=== PATIENT | male | born 1950 | race Caucasian/White ===

== ENCOUNTER → 2020-12-14 | Outpatient (CLI) | payer MEDICARE, BC | LOC: WOUNDCARE 07:47 | PROVIDERS: ATTEND Nurse Practitioner | DX: L59.8 Other specified disorders of the skin and subcutaneous tissue related to radiation (principal); N30.41 Irradiation cystitis with hematuria; R31.0 Gross hematuria; E78.1 Pure hyperglyceridemia; I25.2 Old myocardial infarction; Z85.46 Personal history of malignant neoplasm of prostate; Z87.891 Personal history of nicotine dependence; Z85.828 Personal history of other malignant neoplasm of skin; Z79.899 Other long term (current) drug therapy ==

== ENCOUNTER → 2020-12-22 | Outpatient (CLI) | payer MEDICARE, BC | LOC: WOUNDCARE 02:28 | PROVIDERS: ATTEND Nurse Practitioner | DX: L59.8 Other specified disorders of the skin and subcutaneous tissue related to radiation (principal); M87.88 Other osteonecrosis, other site; N30.41 Irradiation cystitis with hematuria; R31.0 Gross hematuria; I10 Essential (primary) hypertension; E78.1 Pure hyperglyceridemia; I25.2 Old myocardial infarction; Z85.46 Personal history of malignant neoplasm of prostate; Z87.891 Personal history of nicotine dependence; Z85.828 Personal history of other malignant neoplasm of skin; Z79.899 Other long term (current) drug therapy; Y84.2 Radiological procedure and radiotherapy as the cause of abnormal reaction of the patient, or of later complication, without mention of misadventure at the time of the procedure ==

== ENCOUNTER → 2020-12-23 | Outpatient (CLI) | payer MEDICARE, BC | LOC: WOUNDCARE 00:45 | PROVIDERS: ATTEND Nurse Practitioner | DX: L59.8 Other specified disorders of the skin and subcutaneous tissue related to radiation (principal); M87.88 Other osteonecrosis, other site; N30.41 Irradiation cystitis with hematuria; R31.0 Gross hematuria; E78.1 Pure hyperglyceridemia; I25.2 Old myocardial infarction; Z85.46 Personal history of malignant neoplasm of prostate; Z87.891 Personal history of nicotine dependence; Z85.828 Personal history of other malignant neoplasm of skin; Y84.2 Radiological procedure and radiotherapy as the cause of abnormal reaction of the patient, or of later complication, without mention of misadventure at the time of the procedure ==

== ENCOUNTER → 2020-12-24 | Outpatient (CLI) | payer MEDICARE, BC | LOC: WOUNDCARE 02:08 | PROVIDERS: ATTEND Nurse Practitioner | DX: L59.8 Other specified disorders of the skin and subcutaneous tissue related to radiation (principal); M87.88 Other osteonecrosis, other site; N30.41 Irradiation cystitis with hematuria; R31.0 Gross hematuria; I25.2 Old myocardial infarction; E78.1 Pure hyperglyceridemia; Z85.46 Personal history of malignant neoplasm of prostate; Y84.2 Radiological procedure and radiotherapy as the cause of abnormal reaction of the patient, or of later complication, without mention of misadventure at the time of the procedure ==

== ENCOUNTER → 2020-12-25 | Outpatient (CLI) | payer MEDICARE, BC | LOC: WOUNDCARE 08:00 | PROVIDERS: ATTEND Nurse Practitioner | DX: L59.8 Other specified disorders of the skin and subcutaneous tissue related to radiation (principal); M87.88 Other osteonecrosis, other site; N60.41 Mammary duct ectasia of right breast; R31.0 Gross hematuria; E78.1 Pure hyperglyceridemia; I25.2 Old myocardial infarction; Z85.46 Personal history of malignant neoplasm of prostate; Z87.891 Personal history of nicotine dependence; Z85.828 Personal history of other malignant neoplasm of skin; Y84.2 Radiological procedure and radiotherapy as the cause of abnormal reaction of the patient, or of later complication, without mention of misadventure at the time of the procedure ==

== ENCOUNTER → 2020-12-28 | Outpatient (CLI) | payer MEDICARE, BC | LOC: WOUNDCARE 12-25 00:53 | PROVIDERS: ATTEND Nurse Practitioner | DX: L59.8 Other specified disorders of the skin and subcutaneous tissue related to radiation (principal); M87.88 Other osteonecrosis, other site; N30.41 Irradiation cystitis with hematuria; R31.0 Gross hematuria; E78.1 Pure hyperglyceridemia; I25.2 Old myocardial infarction; Z85.46 Personal history of malignant neoplasm of prostate; Z87.891 Personal history of nicotine dependence; Z85.828 Personal history of other malignant neoplasm of skin; Y84.2 Radiological procedure and radiotherapy as the cause of abnormal reaction of the patient, or of later complication, without mention of misadventure at the time of the procedure ==

== ENCOUNTER → 2020-12-29 | Outpatient (CLI) | payer MEDICARE, BC | END | disposition home or self-care (01) | LOC: WOUNDCARE 00:57 | PROVIDERS: ATTEND Nurse Practitioner | DX: L59.8 Other specified disorders of the skin and subcutaneous tissue related to radiation (principal); M87.88 Other osteonecrosis, other site; R31.0 Gross hematuria; I25.2 Old myocardial infarction; E78.1 Pure hyperglyceridemia; Z85.828 Personal history of other malignant neoplasm of skin; Z87.891 Personal history of nicotine dependence; Z85.46 Personal history of malignant neoplasm of prostate ==

== ENCOUNTER → 2020-12-30 | Outpatient (CLI) | payer MEDICARE, BC | LOC: WOUNDCARE 01:16 | PROVIDERS: ATTEND Nurse Practitioner | DX: L59.8 Other specified disorders of the skin and subcutaneous tissue related to radiation (principal); M87.88 Other osteonecrosis, other site; N30.41 Irradiation cystitis with hematuria; R31.0 Gross hematuria; I25.2 Old myocardial infarction; E78.1 Pure hyperglyceridemia; Z85.46 Personal history of malignant neoplasm of prostate; Y84.2 Radiological procedure and radiotherapy as the cause of abnormal reaction of the patient, or of later complication, without mention of misadventure at the time of the procedure ==

== ENCOUNTER → 2020-12-31 | Outpatient (CLI) | payer MEDICARE, BC | LOC: WOUNDCARE 00:27 | PROVIDERS: ATTEND Nurse Practitioner | DX: L59.8 Other specified disorders of the skin and subcutaneous tissue related to radiation (principal); M87.88 Other osteonecrosis, other site; N60.41 Mammary duct ectasia of right breast; R31.0 Gross hematuria; E78.1 Pure hyperglyceridemia; I25.2 Old myocardial infarction; Z85.46 Personal history of malignant neoplasm of prostate; Z87.891 Personal history of nicotine dependence; Z85.828 Personal history of other malignant neoplasm of skin; Y84.2 Radiological procedure and radiotherapy as the cause of abnormal reaction of the patient, or of later complication, without mention of misadventure at the time of the procedure ==

== ENCOUNTER → 2021-01-01 | Outpatient (CLI) | payer MEDICARE, BC | LOC: WOUNDCARE 01:00 | PROVIDERS: ATTEND Nurse Practitioner | DX: L59.8 Other specified disorders of the skin and subcutaneous tissue related to radiation (principal); M87.88 Other osteonecrosis, other site; N60.41 Mammary duct ectasia of right breast; R31.0 Gross hematuria; E78.1 Pure hyperglyceridemia; I25.2 Old myocardial infarction; Z85.46 Personal history of malignant neoplasm of prostate; Z87.891 Personal history of nicotine dependence; Z85.828 Personal history of other malignant neoplasm of skin; Y84.2 Radiological procedure and radiotherapy as the cause of abnormal reaction of the patient, or of later complication, without mention of misadventure at the time of the procedure ==

== ENCOUNTER → 2021-01-04 | Outpatient (CLI) | payer MEDICARE, BC | LOC: WOUNDCARE 01:04 | PROVIDERS: ATTEND Nurse Practitioner | DX: L59.8 Other specified disorders of the skin and subcutaneous tissue related to radiation (principal); M87.88 Other osteonecrosis, other site; N60.41 Mammary duct ectasia of right breast; R31.0 Gross hematuria; E78.1 Pure hyperglyceridemia; I25.2 Old myocardial infarction; Z85.46 Personal history of malignant neoplasm of prostate; Z87.891 Personal history of nicotine dependence; Z85.828 Personal history of other malignant neoplasm of skin; Y84.2 Radiological procedure and radiotherapy as the cause of abnormal reaction of the patient, or of later complication, without mention of misadventure at the time of the procedure ==

== ENCOUNTER → 2021-01-05 | Outpatient (CLI) | payer MEDICARE, BC | LOC: WOUNDCARE 00:42 | PROVIDERS: ATTEND Nurse Practitioner | DX: L59.8 Other specified disorders of the skin and subcutaneous tissue related to radiation (principal); M87.88 Other osteonecrosis, other site; N60.41 Mammary duct ectasia of right breast; R31.0 Gross hematuria; E78.1 Pure hyperglyceridemia; I25.2 Old myocardial infarction; Z85.46 Personal history of malignant neoplasm of prostate; Z87.891 Personal history of nicotine dependence; Z85.828 Personal history of other malignant neoplasm of skin; Y84.2 Radiological procedure and radiotherapy as the cause of abnormal reaction of the patient, or of later complication, without mention of misadventure at the time of the procedure ==

== ENCOUNTER → 2021-01-06 | Outpatient (CLI) | payer MEDICARE, BC | LOC: WOUNDCARE 00:45 | PROVIDERS: ATTEND Nurse Practitioner | DX: L59.8 Other specified disorders of the skin and subcutaneous tissue related to radiation (principal); M87.88 Other osteonecrosis, other site; N30.41 Irradiation cystitis with hematuria; R31.0 Gross hematuria; E78.1 Pure hyperglyceridemia; I25.2 Old myocardial infarction; Z85.46 Personal history of malignant neoplasm of prostate; Z87.891 Personal history of nicotine dependence; Z85.828 Personal history of other malignant neoplasm of skin; Y84.2 Radiological procedure and radiotherapy as the cause of abnormal reaction of the patient, or of later complication, without mention of misadventure at the time of the procedure ==

== ENCOUNTER → 2021-01-07 | Outpatient (CLI) | payer MEDICARE, BC | LOC: WOUNDCARE 02:01 | PROVIDERS: ATTEND Nurse Practitioner | DX: L59.8 Other specified disorders of the skin and subcutaneous tissue related to radiation (principal); M87.88 Other osteonecrosis, other site; N30.41 Irradiation cystitis with hematuria; R31.0 Gross hematuria; I25.2 Old myocardial infarction; E78.1 Pure hyperglyceridemia; Z85.46 Personal history of malignant neoplasm of prostate; Z87.891 Personal history of nicotine dependence; Z85.828 Personal history of other malignant neoplasm of skin; Y84.2 Radiological procedure and radiotherapy as the cause of abnormal reaction of the patient, or of later complication, without mention of misadventure at the time of the procedure ==

== ENCOUNTER → 2021-01-08 | Outpatient (CLI) | payer MEDICARE, BC | LOC: WOUNDCARE 03:03 | PROVIDERS: ATTEND Nurse Practitioner | DX: L59.8 Other specified disorders of the skin and subcutaneous tissue related to radiation (principal); M87.88 Other osteonecrosis, other site; N30.41 Irradiation cystitis with hematuria; R31.0 Gross hematuria; I25.2 Old myocardial infarction; E78.1 Pure hyperglyceridemia; Z85.46 Personal history of malignant neoplasm of prostate; Z87.891 Personal history of nicotine dependence; Z85.828 Personal history of other malignant neoplasm of skin; Y84.2 Radiological procedure and radiotherapy as the cause of abnormal reaction of the patient, or of later complication, without mention of misadventure at the time of the procedure ==

== ENCOUNTER → 2021-01-11 | Outpatient (CLI) | payer MEDICARE, BC | LOC: WOUNDCARE 00:24 | PROVIDERS: ATTEND Nurse Practitioner | DX: L59.8 Other specified disorders of the skin and subcutaneous tissue related to radiation (principal); M87.88 Other osteonecrosis, other site; N30.41 Irradiation cystitis with hematuria; R31.0 Gross hematuria; I25.2 Old myocardial infarction; E78.1 Pure hyperglyceridemia; Z85.46 Personal history of malignant neoplasm of prostate; Z87.891 Personal history of nicotine dependence; Z85.828 Personal history of other malignant neoplasm of skin; Y84.2 Radiological procedure and radiotherapy as the cause of abnormal reaction of the patient, or of later complication, without mention of misadventure at the time of the procedure ==

== ENCOUNTER → 2021-01-12 | Outpatient (CLI) | payer MEDICARE, BC | LOC: WOUNDCARE 01:17 | PROVIDERS: ATTEND Nurse Practitioner | DX: L59.8 Other specified disorders of the skin and subcutaneous tissue related to radiation (principal); M87.88 Other osteonecrosis, other site; N30.41 Irradiation cystitis with hematuria; R31.0 Gross hematuria; I25.2 Old myocardial infarction; E78.1 Pure hyperglyceridemia; Z85.46 Personal history of malignant neoplasm of prostate; Z87.891 Personal history of nicotine dependence; Z85.828 Personal history of other malignant neoplasm of skin; Y84.2 Radiological procedure and radiotherapy as the cause of abnormal reaction of the patient, or of later complication, without mention of misadventure at the time of the procedure ==

== ENCOUNTER → 2021-01-13 | Outpatient (CLI) | payer MEDICARE, BC | LOC: WOUNDCARE 00:55 | PROVIDERS: ATTEND Nurse Practitioner | DX: L59.8 Other specified disorders of the skin and subcutaneous tissue related to radiation (principal); M87.88 Other osteonecrosis, other site; N30.41 Irradiation cystitis with hematuria; R31.0 Gross hematuria; I25.2 Old myocardial infarction; E78.1 Pure hyperglyceridemia; Z85.46 Personal history of malignant neoplasm of prostate; Z87.891 Personal history of nicotine dependence; Z85.828 Personal history of other malignant neoplasm of skin; Y84.2 Radiological procedure and radiotherapy as the cause of abnormal reaction of the patient, or of later complication, without mention of misadventure at the time of the procedure ==

== ENCOUNTER → 2021-01-14 | Outpatient (CLI) | payer MEDICARE, BC | LOC: WOUNDCARE 00:37 | PROVIDERS: ATTEND Nurse Practitioner | DX: L59.8 Other specified disorders of the skin and subcutaneous tissue related to radiation (principal); M87.88 Other osteonecrosis, other site; N30.41 Irradiation cystitis with hematuria; R31.0 Gross hematuria; I25.2 Old myocardial infarction; E78.1 Pure hyperglyceridemia; Z85.46 Personal history of malignant neoplasm of prostate; Z87.891 Personal history of nicotine dependence; Z85.828 Personal history of other malignant neoplasm of skin; Y84.2 Radiological procedure and radiotherapy as the cause of abnormal reaction of the patient, or of later complication, without mention of misadventure at the time of the procedure ==

== ENCOUNTER → 2021-01-15 | Outpatient (CLI) | payer MEDICARE, BC | LOC: WOUNDCARE 01:19 | PROVIDERS: ATTEND Nurse Practitioner | DX: L59.8 Other specified disorders of the skin and subcutaneous tissue related to radiation (principal); M87.88 Other osteonecrosis, other site; N30.41 Irradiation cystitis with hematuria; R31.0 Gross hematuria; I25.2 Old myocardial infarction; E78.1 Pure hyperglyceridemia; Z85.46 Personal history of malignant neoplasm of prostate; Z87.891 Personal history of nicotine dependence; Z85.828 Personal history of other malignant neoplasm of skin; Y84.2 Radiological procedure and radiotherapy as the cause of abnormal reaction of the patient, or of later complication, without mention of misadventure at the time of the procedure ==

== ENCOUNTER → 2021-01-18 | Outpatient (CLI) | payer MEDICARE, BC | LOC: WOUNDCARE 01:09 | PROVIDERS: ATTEND Nurse Practitioner | DX: L59.8 Other specified disorders of the skin and subcutaneous tissue related to radiation (principal); M87.88 Other osteonecrosis, other site; N30.41 Irradiation cystitis with hematuria; R31.0 Gross hematuria; I25.2 Old myocardial infarction; E78.1 Pure hyperglyceridemia; Z85.46 Personal history of malignant neoplasm of prostate; Z87.891 Personal history of nicotine dependence; Z85.828 Personal history of other malignant neoplasm of skin; Y84.2 Radiological procedure and radiotherapy as the cause of abnormal reaction of the patient, or of later complication, without mention of misadventure at the time of the procedure ==

== ENCOUNTER → 2021-01-19 | Outpatient (CLI) | payer MEDICARE, BC | LOC: WOUNDCARE 00:33 | PROVIDERS: ATTEND Nurse Practitioner | DX: L59.8 Other specified disorders of the skin and subcutaneous tissue related to radiation (principal); M87.88 Other osteonecrosis, other site; N30.41 Irradiation cystitis with hematuria; R31.0 Gross hematuria; I25.2 Old myocardial infarction; E78.1 Pure hyperglyceridemia; Z85.46 Personal history of malignant neoplasm of prostate; Z87.891 Personal history of nicotine dependence; Z85.828 Personal history of other malignant neoplasm of skin; Y84.2 Radiological procedure and radiotherapy as the cause of abnormal reaction of the patient, or of later complication, without mention of misadventure at the time of the procedure ==

== ENCOUNTER → 2021-01-20 | Outpatient (CLI) | payer MEDICARE, BC | LOC: WOUNDCARE 00:01 | PROVIDERS: ATTEND Nurse Practitioner | DX: L59.8 Other specified disorders of the skin and subcutaneous tissue related to radiation (principal); M87.88 Other osteonecrosis, other site; N30.41 Irradiation cystitis with hematuria; R31.0 Gross hematuria; I25.2 Old myocardial infarction; E78.1 Pure hyperglyceridemia; Z85.46 Personal history of malignant neoplasm of prostate; Z87.891 Personal history of nicotine dependence; Z85.828 Personal history of other malignant neoplasm of skin; Y84.2 Radiological procedure and radiotherapy as the cause of abnormal reaction of the patient, or of later complication, without mention of misadventure at the time of the procedure ==

== ENCOUNTER → 2021-01-21 | Outpatient (CLI) | payer MEDICARE, BC | LOC: WOUNDCARE 01:02 | PROVIDERS: ATTEND Nurse Practitioner | DX: L59.8 Other specified disorders of the skin and subcutaneous tissue related to radiation (principal); M87.88 Other osteonecrosis, other site; N30.41 Irradiation cystitis with hematuria; R31.0 Gross hematuria; I25.2 Old myocardial infarction; E78.1 Pure hyperglyceridemia; Z85.46 Personal history of malignant neoplasm of prostate; Z87.891 Personal history of nicotine dependence; Z85.828 Personal history of other malignant neoplasm of skin; Y84.2 Radiological procedure and radiotherapy as the cause of abnormal reaction of the patient, or of later complication, without mention of misadventure at the time of the procedure ==

== ENCOUNTER → 2021-01-22 | Outpatient (CLI) | payer MEDICARE, BC | LOC: WOUNDCARE 02:46 | PROVIDERS: ATTEND Nurse Practitioner | DX: L59.8 Other specified disorders of the skin and subcutaneous tissue related to radiation (principal); M87.88 Other osteonecrosis, other site; N30.41 Irradiation cystitis with hematuria; R31.0 Gross hematuria; I25.2 Old myocardial infarction; E78.1 Pure hyperglyceridemia; Z85.46 Personal history of malignant neoplasm of prostate; Z87.891 Personal history of nicotine dependence; Z85.828 Personal history of other malignant neoplasm of skin; Y84.2 Radiological procedure and radiotherapy as the cause of abnormal reaction of the patient, or of later complication, without mention of misadventure at the time of the procedure ==

== ENCOUNTER → 2021-01-25 | Outpatient (CLI) | payer MEDICARE, BC | LOC: WOUNDCARE 01:21 | PROVIDERS: ATTEND Nurse Practitioner | DX: L59.8 Other specified disorders of the skin and subcutaneous tissue related to radiation (principal); M87.88 Other osteonecrosis, other site; N30.41 Irradiation cystitis with hematuria; R31.0 Gross hematuria; I25.2 Old myocardial infarction; E78.1 Pure hyperglyceridemia; Z85.46 Personal history of malignant neoplasm of prostate; Z87.891 Personal history of nicotine dependence; Z85.828 Personal history of other malignant neoplasm of skin; Y84.2 Radiological procedure and radiotherapy as the cause of abnormal reaction of the patient, or of later complication, without mention of misadventure at the time of the procedure ==

== ENCOUNTER → 2021-01-26 | Outpatient (CLI) | payer MEDICARE, BC | LOC: WOUNDCARE 00:24 | PROVIDERS: ATTEND Nurse Practitioner | DX: L59.8 Other specified disorders of the skin and subcutaneous tissue related to radiation (principal); M87.88 Other osteonecrosis, other site; N30.41 Irradiation cystitis with hematuria; R31.0 Gross hematuria; I25.2 Old myocardial infarction; E78.1 Pure hyperglyceridemia; Z85.46 Personal history of malignant neoplasm of prostate; Z87.891 Personal history of nicotine dependence; Z85.828 Personal history of other malignant neoplasm of skin; Y84.2 Radiological procedure and radiotherapy as the cause of abnormal reaction of the patient, or of later complication, without mention of misadventure at the time of the procedure ==

== ENCOUNTER → 2021-01-27 | Outpatient (CLI) | payer MEDICARE, BC | LOC: WOUNDCARE 03:59 | PROVIDERS: ATTEND Nurse Practitioner | DX: L59.8 Other specified disorders of the skin and subcutaneous tissue related to radiation (principal); M87.88 Other osteonecrosis, other site; N30.41 Irradiation cystitis with hematuria; R31.0 Gross hematuria; I25.2 Old myocardial infarction; E78.1 Pure hyperglyceridemia; Z85.46 Personal history of malignant neoplasm of prostate; Z87.891 Personal history of nicotine dependence; Z85.828 Personal history of other malignant neoplasm of skin; Y84.2 Radiological procedure and radiotherapy as the cause of abnormal reaction of the patient, or of later complication, without mention of misadventure at the time of the procedure ==

== ENCOUNTER → 2021-01-28 | Outpatient (CLI) | payer MEDICARE, BC | LOC: WOUNDCARE 00:50 → EDSTATUS 15:04 → WOUNDCARE 15:05 | PROVIDERS: ATTEND Nurse Practitioner | DX: L59.8 Other specified disorders of the skin and subcutaneous tissue related to radiation (principal); M87.88 Other osteonecrosis, other site; N30.41 Irradiation cystitis with hematuria; R31.0 Gross hematuria; I25.2 Old myocardial infarction; E78.1 Pure hyperglyceridemia; Z85.46 Personal history of malignant neoplasm of prostate; Z87.891 Personal history of nicotine dependence; Z85.828 Personal history of other malignant neoplasm of skin; Y84.2 Radiological procedure and radiotherapy as the cause of abnormal reaction of the patient, or of later complication, without mention of misadventure at the time of the procedure ==

== ENCOUNTER → 2021-01-29 | Outpatient (CLI) | payer MEDICARE, BC | LOC: WOUNDCARE 00:34 | PROVIDERS: ATTEND Nurse Practitioner | DX: L59.8 Other specified disorders of the skin and subcutaneous tissue related to radiation (principal); M87.88 Other osteonecrosis, other site; N30.41 Irradiation cystitis with hematuria; R31.0 Gross hematuria; I25.2 Old myocardial infarction; E78.1 Pure hyperglyceridemia; Z85.46 Personal history of malignant neoplasm of prostate; Z87.891 Personal history of nicotine dependence; Z85.828 Personal history of other malignant neoplasm of skin; Y84.2 Radiological procedure and radiotherapy as the cause of abnormal reaction of the patient, or of later complication, without mention of misadventure at the time of the procedure ==

== ENCOUNTER → 2021-02-01 | Outpatient (CLI) | payer MEDICARE, BC | LOC: WOUNDCARE 01:56 | PROVIDERS: ATTEND Nurse Practitioner | DX: L59.8 Other specified disorders of the skin and subcutaneous tissue related to radiation (principal); M87.88 Other osteonecrosis, other site; N30.41 Irradiation cystitis with hematuria; R31.0 Gross hematuria; I25.2 Old myocardial infarction; E78.1 Pure hyperglyceridemia; Z85.46 Personal history of malignant neoplasm of prostate; Z87.891 Personal history of nicotine dependence; Z85.828 Personal history of other malignant neoplasm of skin; Y84.2 Radiological procedure and radiotherapy as the cause of abnormal reaction of the patient, or of later complication, without mention of misadventure at the time of the procedure ==